=== PATIENT | male | born 1980 | race Two or more races ===

== ENCOUNTER 2016-05-31 10:05 | Emergency (ER) | payer SELFPAY ==
[~2016-05-31 10:05] MED LIST: ACETAMINOPHEN325 MG PO; AMOXICILLIN500 M1 PO; ARANESP25 MCG/0.4 IJ; BIAXIN500 M2 PO; CATAPRES0.3 M1 PO; CLONIDINE HCL0.1 M2 PO; CLONIDINE HCL0.2 MG PO; EMLA CREAM30 GM TOP; EMLA CREAM30 GM TP; FERAHEME510 MG/11; FERRIC CITRATE210 MG PO; FERRLECIT62.5 MG/5 IV; FOSRENOL500 M1 PO; FOSRENOL500 MG PO; HYDRALAZINE HCL25 M1 PO; IMODIUM A-D2 M3 PO; LISINOPRIL20 MG PO; LOPRESSOR100 MG PO; LOPRESSOR50 M1 PO; MULTI VITAMIN1 EAC1 PO; MULTI VITAMIN1 EAC2 PO; NORCO 5-325 TA1 EACH PO; NORCO 5/3251 TA1 PO; NORVASC10 M1 PO; NORVASC5 M2 PO; OMEPRAZOLE20 M2 PO; PAIN RELIEV PO; PRILOSEC20 M1 PO; PROVENTIL HFA6.7 GM IH; SENSIPAR30 M1; SENSIPAR60 M1 PO; SINGULAIR10 M1 PO; TYLENOL500 MG PO; ULTRAM50 M1 PO; VANCOMYCIN750 MG/150 IV; VENOFER100 MG/5 M IV; VITAMIN D-50000 IU/C PO; VITAMIN D250000 UNI1 PO; ZESTRIL20 M1 PO; ZOFRAN ODT4 MG PO; ZOFRAN4 M2 PO
[2016-05-31 11:23] LABS: BASO % 0.3 % (0-2); EOS % 1.5 % (0-7); EOSINOPHIL ABSOLUTE COUNT 0.1 tho/cmm (0.0-0.7); HCT-HEMATOCRIT 32.5 % (36.0-53.5); HGB-HEMOGLOBIN 11.6 gm/dl (13.5-17.0); IMMATURE GRANULOCYTES ABSOLUTE 0.01 tho/cmm (0-0.03); IMMATURE GRANULOCYTES PERCENT 0.1 % (0-0.3); LYMPH % 25.2 % (20-45); LYMPH ABSOLUTE COUNT 1.9 tho/cmm (0.8-4.5); MCH (MEAN CORPUSCULAR HGB) 30.9 pg (28.0-32.0); MCHC MEAN CORPUSCULAR HGB CONC 35.7 % (32.0-36.0); MCV (MEAN CELL VOLUME) 86.4 fl (82.0-96.0); MEAN PLATELET VOLUME 9.3 cmc (9.4-12.4); MONO % 5.9 % (0-12); MONOCYTE ABSOLUTE COUNT 0.4 tho/cmm (0.0-1.2); PLATELET COUNT 185 tho/cmm (150-450); RED BLOOD COUNT 3.76 mil/cmm (4.40-5.70); RED CELL DISTRIBUTION WIDTH 13.5 % (12.4-16.4); WHITE BLOOD COUNT 7.5 tho/cmm (4.0-10.0)
[2016-05-31 11:45] LABS: ALB/GLOB RATIO 1.1 (0.8-2.0); ALBUMIN 4.1 g/dl (3.5-5.0); ALKALINE PHOSPHATASE 134 U/L (33-138); ALT/SGPT 34 U/L (12-78); ANION GAP 15 mmol/L (0-20); AST/SGOT 26 U/L (10-40); BILIRUBIN,TOTAL 0.6 mg/dl (0.0-1.5); BLOOD UREA NITROGEN 20 mg/dl (6-24); CARBON DIOXIDE-VENOUS 26 mmol/L (22-32); CHLORIDE 102 mmol/l (96-110); CREATININE 8.59 mg/dl (0.60-1.30); GLUCOSE 88 mg/dL (70-110); LIPASE 314 U/L (73-393); POTASSIUM 3.3 mmol/L (3.7-5.1); SODIUM 140 mmol/L (135-145); eGFR VALUE FOR BLACK 8 mL/Min
[2016-05-31] MEDS ORDERED: PRILOSEC OTC20 M1 PO (15:02)
[2016-05-31] MEDS ORDERED: NORCO 5-325 TA1 EACH PO (15:02)
[2016-06-01] MEDS ORDERED: HEPARIN SO1000 UNIT2 IV (16:31)
[2016-06-01] MEDS ORDERED: ARANESP25 MCG/0.4 IV (16:32)
[2016-06-01] MEDS ORDERED: PAIN RELIEF EX500 MG PO (16:32)
[2016-06-01] MEDS ORDERED: ZEMPLAR2 MCG/ML IV (16:32)
[2016-06-01] MEDS ORDERED: CATAPRES0.3 M1 PO (16:33)
[2016-06-01] MEDS ORDERED: SIMETHICONE80 M3 PO (16:33)
[2016-07-05] MEDS ORDERED: OMEPRAZOLE20 M3 PO (16:21)
[2016-07-05] MEDS ORDERED: MULTIVITAMINS1 EAC6 PO (16:22)
[2016-07-05] MEDS ORDERED: AURYXIA PO (16:23)
[2016-07-05] MEDS ORDERED: REQUIP0.5 M1 PO (16:24)
[2016-07-05] MEDS ORDERED: CELEXA20 M2 PO (16:24)
[2016-07-05] MEDS ORDERED: ACID CONTROL150 M2 PO (16:24)
[2016-07-05] MEDS ORDERED: [UNRECOGNIZED DRUG - REMARK] (16:26)
== END 2016-05-31 15:19 ==
LOC: EDMED 10:05
PROVIDERS: Physician Assistant
DX: R10.11 Right upper quadrant pain (principal); R10.13 Epigastric pain; I12.0 Hypertensive chronic kidney disease with stage 5 chronic kidney disease or end stage renal disease; N18.6 End stage renal disease; F17.210 Nicotine dependence, cigarettes, uncomplicated; Z99.2 Dependence on renal dialysis
CPT/HCPCS: J2270; J2405; J7030

== ENCOUNTER 2016-05-31 21:27 | Inpatient (IN) | payer SELFPAY ==
[~2016-05-31 21:27] MED LIST changes: +PRILOSEC OTC20 M1 PO
[2016-05-31 22:17] LABS: BASO % 0.1 % (0-2); EOS % 1.1 % (0-7); EOSINOPHIL ABSOLUTE COUNT 0.2 tho/cmm (0.0-0.7); HCT-HEMATOCRIT 33.2 % (36.0-53.5); HGB-HEMOGLOBIN 11.9 gm/dl (13.5-17.0); IMMATURE GRANULOCYTES ABSOLUTE 0.03 tho/cmm (0-0.03); IMMATURE GRANULOCYTES PERCENT 0.2 % (0-0.3); LYMPH % 17.8 % (20-45); LYMPH ABSOLUTE COUNT 2.5 tho/cmm (0.8-4.5); MCHC MEAN CORPUSCULAR HGB CONC 35.8 % (32.0-36.0); MCV (MEAN CELL VOLUME) 86.5 fl (82.0-96.0); MEAN PLATELET VOLUME 9.1 cmc (9.4-12.4); MONO % 8.4 % (0-12); MONOCYTE ABSOLUTE COUNT 1.2 tho/cmm (0.0-1.2); NEUTROPHILS % 72.4 % (40-80); PLATELET COUNT 184 tho/cmm (150-450); RED BLOOD COUNT 3.84 mil/cmm (4.40-5.70); RED CELL DISTRIBUTION WIDTH 13.4 % (12.4-16.4); WHITE BLOOD COUNT 13.8 tho/cmm (4.0-10.0)
[2016-05-31 22:34] LABS: ALBUMIN 4.3 g/dl (3.5-5.0); ALKALINE PHOSPHATASE 129 U/L (33-138); ALT/SGPT 32 U/L (12-78); AST/SGOT 28 U/L (10-40); BILIRUBIN,TOTAL 0.8 mg/dl (0.0-1.5); BLOOD UREA NITROGEN 24 mg/dl (6-24); CALCIUM 9.8 mg/dl (8.5-10.5); CARBON DIOXIDE-VENOUS 26 mmol/L (22-32); CHLORIDE 100 mmol/l (96-110); GLUCOSE 103 mg/dL (70-110); SODIUM 140 mmol/L (135-145)
[2016-05-31 22:44] LABS: ANION GAP 17 mmol/L (0-20); eGFR VALUE FOR BLACK 7 mL/Min
[2016-05-31 22:45] LABS: LIPASE 13393 U/L (73-393)
[2016-05-31 22:49] LABS: POTASSIUM 2.8 mmol/L (3.7-5.1)
[2016-06-01 05:53] LABS: ANION GAP 15 mmol/L (0-20); BLOOD UREA NITROGEN 29 mg/dl (6-24); CALCIUM 9.6 mg/dl (8.5-10.5); CARBON DIOXIDE-VENOUS 27 mmol/L (22-32); CHLORIDE 103 mmol/l (96-110); GLUCOSE 99 mg/dL (70-110); POTASSIUM 3.6 mmol/L (3.7-5.1); SODIUM 141 mmol/L (135-145)
[2016-06-01 06:06] LABS: BASO % 0.2 % (0-2); EOS % 0.3 % (0-7); HCT-HEMATOCRIT 30.3 % (36.0-53.5); HGB-HEMOGLOBIN 10.7 gm/dl (13.5-17.0); IMMATURE GRANULOCYTES ABSOLUTE 0.02 tho/cmm (0-0.03); IMMATURE GRANULOCYTES PERCENT 0.2 % (0-0.3); LYMPH % 12.4 % (20-45); LYMPH ABSOLUTE COUNT 1.4 tho/cmm (0.8-4.5); MCH (MEAN CORPUSCULAR HGB) 30.6 pg (28.0-32.0); MCHC MEAN CORPUSCULAR HGB CONC 35.3 % (32.0-36.0); MCV (MEAN CELL VOLUME) 86.6 fl (82.0-96.0); MEAN PLATELET VOLUME 9.4 cmc (9.4-12.4); MONO % 6.7 % (0-12); MONOCYTE ABSOLUTE COUNT 0.8 tho/cmm (0.0-1.2); NEUTROPHIL ABSOLUTE COUNT 9.3 tho/cmm (1.6-8.0); NEUTROPHIL-AUTOMATED 9.3 tho/cmm (1.6-8.0); NEUTROPHILS % 80.2 % (40-80); PLATELET COUNT 162 tho/cmm (150-450); RED CELL DISTRIBUTION WIDTH 13.7 % (12.4-16.4); WHITE BLOOD COUNT 11.5 tho/cmm (4.0-10.0)
[2016-06-01 06:16] LABS: AMYLASE 887 U/L (20-90); LIPASE 3519 U/L (73-393); eGFR VALUE FOR BLACK 6 mL/Min
[2016-06-01] MEDS ORDERED: HEPARIN SO1000 UNIT2 IV (16:31)
[2016-06-01] MEDS ORDERED: ARANESP25 MCG/0.4 IV (16:32)
[2016-06-01] MEDS ORDERED: PAIN RELIEF EX500 MG PO (16:32)
[2016-06-01] MEDS ORDERED: ZEMPLAR2 MCG/ML IV (16:32)
[2016-06-01] MEDS ORDERED: SIMETHICONE80 M3 PO (16:33)
[2016-06-01] MEDS ORDERED: CATAPRES0.3 M1 PO (16:33)
[2016-06-02 08:40] LABS: ANION GAP 21 mmol/L (0-20); BLOOD UREA NITROGEN 27 mg/dl (6-24); CALCIUM 10.2 mg/dl (8.5-10.5); CARBON DIOXIDE-VENOUS 23 mmol/L (22-32); CHLORIDE 98 mmol/l (96-110); POTASSIUM 4.3 mmol/L (3.7-5.1); SODIUM 138 mmol/L (135-145); eGFR VALUE FOR BLACK 8 mL/Min
[2016-06-02 08:51] LABS: GLUCOSE 54 mg/dL (70-110)
--- NOTE | 2016-06-02 17:26 | NUR ---
AGREE WITH STUDENT NURSE'S ASSESSMENTS. HAVE EDITED THEM NEEDED.
[2016-07-05] MEDS ORDERED: OMEPRAZOLE20 M3 PO (16:21)
[2016-07-05] MEDS ORDERED: MULTIVITAMINS1 EAC6 PO (16:22)
[2016-07-05] MEDS ORDERED: AURYXIA PO (16:23)
[2016-07-05] MEDS ORDERED: REQUIP0.5 M1 PO (16:24)
[2016-07-05] MEDS ORDERED: CELEXA20 M2 PO (16:24)
[2016-07-05] MEDS ORDERED: ACID CONTROL150 M2 PO (16:24)
[2016-07-05] MEDS ORDERED: [UNRECOGNIZED DRUG - REMARK] (16:26)
== END 2016-06-02 17:26 | DRG 438 ==
LOC: EDMED 21:27 → EMR2 06-01 00:21 → PCUA 06-01 02:30
PROVIDERS: Emergency Medicine; Internal Medicine Nephrology; ADMIT Hospitalist
PROC: 5A1D60Z (ICD-10-PCS; principal; 2016-06-01)
DX: K85.90 Acute pancreatitis without necrosis or infection, unspecified (principal); N18.6 End stage renal disease; I12.0 Hypertensive chronic kidney disease with stage 5 chronic kidney disease or end stage renal disease; I31.3 Pericardial effusion (noninflammatory); I16.0 Hypertensive urgency; Z99.2 Dependence on renal dialysis; D64.9 Anemia, unspecified; Z88.8 Allergy status to other drugs, medicaments and biological substances; K21.9 Gastro-esophageal reflux disease without esophagitis
CPT/HCPCS: J0360; J1644; J2270; J2405; J2543; J3370; J3480; J7030

== ENCOUNTER 2016-06-22 11:07 | Inpatient (IN) | payer SELFPAY ==
[~2016-06-22 11:07] MED LIST changes: +ARANESP25 MCG/0.4 IV; +HEPARIN SO1000 UNIT2 IV; +PAIN RELIEF EX500 MG PO; +SIMETHICONE80 M3 PO; +ZEMPLAR2 MCG/ML IV
[2016-06-22 12:21] LABS: BASO % 0.2 % (0-2); EOS % 0.6 % (0-7); EOSINOPHIL ABSOLUTE COUNT 0.1 tho/cmm (0.0-0.7); HCT-HEMATOCRIT 31.5 % (36.0-53.5); HGB-HEMOGLOBIN 11.5 gm/dl (13.5-17.0); IMMATURE GRANULOCYTES ABSOLUTE 0.02 tho/cmm (0-0.03); IMMATURE GRANULOCYTES PERCENT 0.2 % (0-0.3); LYMPH % 10.5 % (20-45); LYMPH ABSOLUTE COUNT 1.4 tho/cmm (0.8-4.5); MCH (MEAN CORPUSCULAR HGB) 31.1 pg (28.0-32.0); MCHC MEAN CORPUSCULAR HGB CONC 36.5 % (32.0-36.0); MCV (MEAN CELL VOLUME) 85.1 fl (82.0-96.0); MEAN PLATELET VOLUME 8.8 cmc (9.4-12.4); MONO % 7.2 % (0-12); NEUTROPHIL ABSOLUTE COUNT 10.7 tho/cmm (1.6-8.0); NEUTROPHIL-AUTOMATED 10.7 tho/cmm (1.6-8.0); NEUTROPHILS % 81.3 % (40-80); PLATELET COUNT 262 tho/cmm (150-450); RED CELL DISTRIBUTION WIDTH 13.8 % (12.4-16.4); WHITE BLOOD COUNT 13.2 tho/cmm (4.0-10.0)
[2016-06-22 12:42] LABS: ALB/GLOB RATIO 1.1 (0.8-2.0); ALBUMIN 4.6 g/dl (3.5-5.0); ALKALINE PHOSPHATASE 138 U/L (33-138); ALT/SGPT 35 U/L (12-78); ANION GAP 20 mmol/L (0-20); AST/SGOT 34 U/L (10-40); BILIRUBIN,TOTAL 0.7 mg/dl (0.0-1.5); BLOOD UREA NITROGEN 43 mg/dl (6-24); CALCIUM 10.7 mg/dl (8.5-10.5); CARBON DIOXIDE-VENOUS 22 mmol/L (22-32); CHLORIDE 99 mmol/l (96-110); GLUCOSE 159 mg/dL (70-110); LIPASE 320 U/L (73-393); MAGNESIUM 2.8 mg/dl (1.8-2.6); PHOSPHOROUS 3.1 mg/dl (2.5-4.9); POTASSIUM 3.2 mmol/L (3.7-5.1); SODIUM 138 mmol/L (135-145)
[2016-06-22 12:51] LABS: C-REACTIVE PROTEIN <0.3 mg/dl (0-0.9); eGFR VALUE FOR BLACK 5 mL/Min
[2016-06-22] MEDS ORDERED: HEMODIALYSIS IV (13:42)
[2016-06-22 15:30] LABS: TSH-THYROID STIMULATING HORM. 5.71 uIU/ml (0.40-3.80)
--- NOTE | 2016-06-22 16:34 | NUR ---
VIRTUAL CARE NOTE: PT SPEAKS ONLY PORTUGUESE. 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 SHE IS ABLE TO VERIFY THAT THE INFO IS THE SAME FROM HIS LAST HOSPITALIZATION IN MAY.
--- NOTE | 2016-06-22 19:30 | NUR ---
VIRTUAL CARE NOTE: UNABLE TO ROUND ON PT. DUE TO NO INTERPRETOR AT THIS TIME. WILL CONTINUE TO MONITOR.
[2016-06-23 05:12] LABS: BASO % 0.1 % (0-2); EOS % 0.3 % (0-7); HCT-HEMATOCRIT 28.1 % (36.0-53.5); HGB-HEMOGLOBIN 9.8 gm/dl (13.5-17.0); IMMATURE GRANULOCYTES ABSOLUTE 0.04 tho/cmm (0-0.03); IMMATURE GRANULOCYTES PERCENT 0.3 % (0-0.3); LYMPH % 12.6 % (20-45); LYMPH ABSOLUTE COUNT 1.6 tho/cmm (0.8-4.5); MCH (MEAN CORPUSCULAR HGB) 30.4 pg (28.0-32.0); MCHC MEAN CORPUSCULAR HGB CONC 34.9 % (32.0-36.0); MCV (MEAN CELL VOLUME) 87.3 fl (82.0-96.0); MEAN PLATELET VOLUME 8.6 cmc (9.4-12.4); MONO % 11.9 % (0-12); MONOCYTE ABSOLUTE COUNT 1.5 tho/cmm (0.0-1.2); NEUTROPHIL ABSOLUTE COUNT 9.5 tho/cmm (1.6-8.0); NEUTROPHIL-AUTOMATED 9.5 tho/cmm (1.6-8.0); NEUTROPHILS % 74.8 % (40-80); PLATELET COUNT 194 tho/cmm (150-450); RED BLOOD COUNT 3.22 mil/cmm (4.40-5.70); RED CELL DISTRIBUTION WIDTH 14.3 % (12.4-16.4); WHITE BLOOD COUNT 12.7 tho/cmm (4.0-10.0)
[2016-06-23 05:24] LABS: ALBUMIN 3.7 g/dl (3.5-5.0); ALKALINE PHOSPHATASE 105 U/L (33-138); ALT/SGPT 29 U/L (12-78); ANION GAP 19 mmol/L (0-20); AST/SGOT 29 U/L (10-40); BILIRUBIN,TOTAL 0.6 mg/dl (0.0-1.5); BLOOD UREA NITROGEN 55 mg/dl (6-24); CALCIUM 9.6 mg/dl (8.5-10.5); CARBON DIOXIDE-VENOUS 26 mmol/L (22-32); CHLORIDE 98 mmol/l (96-110); GLUCOSE 111 mg/dL (70-110); POTASSIUM 3.8 mmol/L (3.7-5.1); SODIUM 139 mmol/L (135-145); eGFR VALUE FOR BLACK 4 mL/Min
--- NOTE | 2016-06-23 20:10 | NUR ---
VIRTUAL CARE NOTE: PT. IN BED WITH S.O. AT SIDE TO HELP TRANSLATE. PT. STATES HE HAS NO DELOR/PAIN, STATES FEELS OKAY DENIES QUESTIONS OR NEEDS AT THIS TIME. INSTRUCTED TO CALL FOR FUTURE NEEDS. STATES OK.
[2016-06-25] MEDS ORDERED: COREG6.25 M1 PO (14:37)
[2016-06-25] MEDS ORDERED: PROTONIX40 M2 PO (14:38)
[2016-07-05] MEDS ORDERED: OMEPRAZOLE20 M3 PO (16:21)
[2016-07-05] MEDS ORDERED: MULTIVITAMINS1 EAC6 PO (16:22)
[2016-07-05] MEDS ORDERED: AURYXIA PO (16:23)
[2016-07-05] MEDS ORDERED: ACID CONTROL150 M2 PO (16:24)
[2016-07-05] MEDS ORDERED: REQUIP0.5 M1 PO (16:24)
[2016-07-05] MEDS ORDERED: CELEXA20 M2 PO (16:24)
[2016-07-05] MEDS ORDERED: [UNRECOGNIZED DRUG - REMARK] (16:26)
== END 2016-06-25 17:50 | DRG 304 ==
LOC: EDMED 11:07 → EMR2 14:32 → 5WD 15:45
PROVIDERS: Emergency Medicine; Family Medicine; ADMIT Hospitalist
PROC: 5A1D60Z (ICD-10-PCS; principal; 2016-06-23)
DX: I16.0 Hypertensive urgency (principal); N18.6 End stage renal disease; R79.89 Other specified abnormal findings of blood chemistry; E03.9 Hypothyroidism, unspecified; E83.41 Hypermagnesemia; I12.0 Hypertensive chronic kidney disease with stage 5 chronic kidney disease or end stage renal disease; Z99.2 Dependence on renal dialysis; R10.9 Unspecified abdominal pain; R11.2 Nausea with vomiting, unspecified; T47.1X5A Adverse effect of other antacids and anti-gastric-secretion drugs, initial encounter; Z87.11 Personal history of peptic ulcer disease; F17.210 Nicotine dependence, cigarettes, uncomplicated; D63.1 Anemia in chronic kidney disease; E83.52 Hypercalcemia; E78.1 Pure hyperglyceridemia
CPT/HCPCS: A9500; C9113; G0480; J0360; J0885; J1170; J2270; J2405; J7030

== ENCOUNTER 2016-07-07 09:03 | Day surgery (SDC) | payer SELFPAY ==
[~2016-07-07 09:03] MED LIST changes: +ACID CONTROL150 M2 PO; +AURYXIA PO; +CELEXA20 M2 PO; +COREG6.25 M1 PO; +HEMODIALYSIS IV; +MULTIVITAMINS1 EAC6 PO; +OMEPRAZOLE20 M3 PO; +PROTONIX40 M2 PO; +REQUIP0.5 M1 PO; +[UNRECOGNIZED DRUG - REMARK]
[2016-07-07] MEDS ORDERED: PROTONIX40 M3 PO (10:15)
[2016-07-07] MEDS ORDERED: COREG6.25 M1 PO (10:15)
== END 2016-07-07 12:30 ==
LOC: RADSP 09:03 → SHSB 09:04
PROC: 057F3ZZ Dilation of Left Cephalic Vein, Percutaneous Approach (ICD-10-PCS; principal; 2016-07-07)
DX: T82.858A Stenosis of other vascular prosthetic devices, implants and grafts, initial encounter (principal); I12.0 Hypertensive chronic kidney disease with stage 5 chronic kidney disease or end stage renal disease; N18.6 End stage renal disease; Y83.8 Other surgical procedures as the cause of abnormal reaction of the patient, or of later complication, without mention of misadventure at the time of the procedure; Z98.890 Other specified postprocedural states
CPT/HCPCS: C1725; C1769; J2250; J3010; Q9967